=== PATIENT | male | born 1945 | race African-American/Black ===

== ENCOUNTER 2018-04-10 15:25 | Observation (INO) | payer MEDICARE, MEDICAID ==
[~2018-04-10 15:25] MED LIST: ISOVUE-370 76%-LOCM 1 ML ONE
--- NOTE | 2018-04-10 16:05 | RAD ---
AP VIEW OF THE CHEST 04/10/18 INDICATION: Syncopal episode. COMPARISON: Prior exam dated 11/08/16. FINDINGS: there is severe COPD. There is stable eventration of the anterior right hemidiaphragm when compared t o two view chest radiograph dated 02/24/11. The heart size and pulmonary vasculature is within normal limits. No acute osseous abnormality is janette dent. IMPRESSION: Stable COPD. POS: GRICEL
[2018-04-10 16:21] LABS: #Basophils 0.1 thou/uL (0.0-0.2); #Eosinphils 0.3 thou/uL (0.0-0.7); #Lymphocytes 3.2 thou/uL (1.20-3.40); #Monocytes 0.8 thou/uL (0.11-0.59); #Neutrophils 8.5 thou/uL (1.40-6.50); %Basophils 1.1 % (0.0-1.0); %Lymphocytes 24.8 % (21.0-51.0); %Monocytes 6.3 % (0.0-10.0); %Neutrophils 65.8 % (42.0-75.0); Hemoglobin 13.1 g/dL (14.0-18.0); Mean Corpuscular HGB CONC 33.1 g/dL (32.0-36.0); Mean Corpuscular Hemoglobin 31.6 pg (27.0-31.0); Mean Corpuscular Volume 95.4 fl (80.0-94.0); Mean Platelet Volume 6.3 fL (7.4-10.4); Platelet Count 401 thou/uL (130-400); RBC Distribution Width 12.1 % (11.5-14.5); Red Blood Cell (RBC) Count 4.15 mill/uL (4.70-6.10); White Blood Cell (WBC) Count 12.9 thou/uL (4.8-10.8)
[2018-04-10 16:28] LABS: INR-International Normal Ratio 1.1; PTT 30.3 SEC (22.9-36.1); Prothrombin Time 14.5 SEC (12.0-14.7)
[2018-04-10 16:29] LABS: D-Dimer Test 0.45 *mcg/mL (0.27-0.43)
[2018-04-10 16:42] LABS: ALT (SGPT) 37 U/L (8-55); AST (SGOT) 27 U/L (5-34); Albumin 3.6 g/dL (3.4-4.8); Alkaline Phosphatase 65 U/L (40-150); Anion Gap 10 mmol/L (10-20); BUN (Urea Nitrogen) 16 mg/dL (8.4-25.7); Bilirubin, Total 0.5 mg/dL (0.2-1.2); Calc. Creatinine Clearance 0 mL/min (70-130); Calcium 9.3 mg/dL (7.8-10.44); Carbon Dioxide 23 mmol/L (23-31); Chloride 106 mmol/L (98-107); Estimated GFR-MDRD 78; Globulin 3.8 g/dL (2.4-3.5); Glucose 198 mg/dL (83-110); Magnesium 1.9 mg/dL (1.6-2.6); Protein, Total 7.4 g/dL (5.8-8.1); Sodium 134 mmol/L (136-145)
[2018-04-10 16:48] LABS: Troponin I Less than 0.010 ng/mL (< 0.028)
--- NOTE | 2018-04-10 18:15 | PDOC.FPRHP ---
- History of Present Illness Chief Complaint: Syncope History of Present Illness: 72 year old male with PMH Type II DM, CKD stage III, HLD, HTN, and COPD that presents after a non-prodromal syncopal episode at home while walking into the kitchen. The event happened around 16:00 this afternoon and lasted only a few seconds. He had just gotten up from the couch when the episode occurred. He does not recall feeling dizzy or light-headed prior to the episode. He recalled the events upon waking up. He does state that all he ate today was a banana. The event was witnessed by a friend who called EMS at the request of the patient. Patient denies any similar events in the past. He was feeling fine prior to the event. He denies any chest pain, palpitations, light-headedness, vertigo, or difficulty ambulating. Patient does endorse a one month history of cough productive of clear sputum and shortness of breath that is mildly worse than baseline. He endorses some lower extremity swelling after standing for long periods of time. Patient denies any unintended weight loss or decrease in appetite. He states he has been staying well hydrated. Patient denies any new medication changes. ED Course: Patient received a 500 mL NS fluid bolus in ED. EKG was performed which showed NSR with no ischemic changes. - Allergies/Adverse Reactions Allergies Allergy/AdvReac Type Severity Reaction Status Date / Time No Known Allergies Allergy Verified 11/08/14 10:47 - Home Medications Medication Instructions Recorded Confirmed Type Amlodipine [Norvasc] 10 mg PO DAILY 02/27/14 04/10/18 History Lisinopril [Zestril] 20 mg PO DAILY 02/27/14 04/10/18 History Zantac 150 mg PO BID 02/27/14 04/10/18 History Aspirin-Dipyridamole [Aggrenox] 1 cap PO BID 02/28/14 04/10/18 History Albuterol Sulfate [Albuterol 2.5 mg NEB BID 04/10/18 04/10/18 History Sulfate Neb] Fluticasone/Salmeterol [Advair 1 puff INH BID 04/10/18 04/10/18 History Diskus 250/50] Ipratropium-Albuterol [Combivent] 2 puff INH Q4H PRN 04/10/18 04/10/18 History Metoprolol Tartrate [Lopressor] 25 mg PO BID 04/10/18 04/10/18 History Montelukast Sodium 10 mg PO DAILY 04/10/18 04/10/18 History glipiZIDE [Glucotrol] 10 mg PO BID 04/10/18 04/10/18 History metFORMIN HCl [Metformin HCl] 1,000 mg PO BID 04/10/18 04/10/18 History - History PMHx: Type II DM, CKD stage III, HLD, HTN, COPD, Neuropathy, GERD PSHx: None FHx: Non-contributory Social: Patient endorses a 1 pack per day 20 year smoking history. He quit smoking 30 years ago. He denies any current alcohol or illicit drug use. He does endorse using heroin in the 60's. - Review of Systems General: denies: fever/chills, weight/appetite/sleep changes, night sweats, fatigue Eyes: denies: eye pain, vision changes ENT: denies: nasal congestion, rhinorrhea Respiratory: reports: cough, congestion, shortness of breath, exercise intolerance Cardiovascular: reports: edema. denies: chest pain, palpitation, paroxysmal nocturnal dyspnea Gastrointestinal: denies: nausea, vomiting, diarrhea, constipation, abdominal pain Genitourinary: denies: incontinence, dysuria, polyuria Skin: denies: rashes, lesions, jaundice Musculoskeletal: denies: pain, tenderness, stiffness Neurological: reports: syncope. denies: numbness, seizure, weakness Psychological: denies: anxiety, depression - Vital signs BP: [137/82] HR: [83] RR: [21] Tmax: [97.9] Pox: [93]% on [RA] Wt: [77.56 kg] - Physical Exam Constitutional: NAD, awake, alert and oriented, well developed HEENT: normocephalic and atraumatic, PERRLA, EOMI, conjunctiva clear, no scleral icterus, normal nasal mucosa, MMM, oropharynx clear -HEENT: Poor dentition Neck: supple, FROM, trachea midline, no LAD, no JVD, no thyromegaly, no bruits Heart: RRR, normal S1/S2, no murmurs/rubs/gallops, pulses present -Heart: 1+ pitting edema of bilateral LE's to mid calf Lungs: CTAB, no respiratory distress, no wheezing, no retractions -Lungs: Decreased lung sounds throughout Abdomen: soft, non-tender, bowel sounds present Musculoskeletal: normal structure, normal tone, ROM grossly normal Neurological: no focal deficit, CN II-XII intact, normal sensation Skin: good turgor, capillary refill <2 seconds -Skin: Multiple tattoos Heme/Lymphatic: no unusual bruising or bleeding, no purpura -Heme/Lymphatic: Bruise over upper thoracic vertebrae Psychiatric: normal mood and affect, good judgment and insight, intact recent and remote memory FMR H&P: Results - Labs Result Diagrams: 04/11/18 04:00 04/11/18 04:00 Lab results: WBC 12.9 thou/uL (4.8-10.8) H 04/10/18 16:09 Hgb 13.1 g/dL (14.0-18.0) L 04/10/18 16:09 Hct 39.6 % (42.0-52.0) L 04/10/18 16:09 MCV 95.4 fl (80.0-94.0) H 04/10/18 16:09 Plt Count 401 thou/uL (130-400) H 04/10/18 16:09 Neutrophils % 65.8 % (42.0-75.0) 04/10/18 16:09 Sodium 134 mmol/L (136-145) L 04/10/18 16:09 Potassium 5.0 mmol/L (3.5-5.1) 04/10/18 16:09 Chloride 106 mmol/L (98-107) 04/10/18 16:09 Carbon Dioxide 23 mmol/L (23-31) 04/10/18 16:09 BUN 16 mg/dL (8.4-25.7) 04/10/18 16:09 Creatinine 1.12 mg/dL (0.6-1.3) 04/10/18 16:09 Glucose 198 mg/dL (83-110) H 04/10/18 16:09 Calcium 9.3 mg/dL (7.8-10.44) 04/10/18 16:09 Total Bilirubin 0.5 mg/dL (0.2-1.2) 04/10/18 16:09 AST 27 U/L (5-34) 04/10/18 16:09 ALT 37 U/L (8-55) 04/10/18 16:09 Alkaline Phosphatase 65 U/L (40-150) 04/10/18 16:09 B-Natriuretic Peptide 12.0 pg/mL (0-100) 04/10/18 16:09 Serum Total Protein 7.4 g/dL (5.8-8.1) 04/10/18 16:09 Albumin 3.6 g/dL (3.4-4.8) 04/10/18 16:09 - Radiology Interpretation Chest x-ray Status: image reviewed by me, report reviewed by me Additional comment: Stable COPD CT scan - chest Status: image reviewed by me, report reviewed by me Additional comment: 1. No central or segmental pulmonary embolism 2. Spiculated pulmonary nodule in right lower lobe suspicious for possible malignancy 3. Severe emphysema 4. Moderate hiatal hernia 5. Incompletely evaluated cystic lesion involving the superior pole of right kidney. 6. Suspected small hypodensity within the medial left hepatic lobe which may reflect a tiny cyst FMR H&P: A/P - Problem List (1) Syncope Current Visit: Yes Status: Acute Code(s): R55 - SYNCOPE AND COLLAPSE (2) Stage 3 chronic kidney disease Current Visit: Yes Status: Chronic Code(s): N18.3 - CHRONIC KIDNEY DISEASE, STAGE 3 (MODERATE) (3) Cerebrovascular disease Current Visit: No Status: Chronic Code(s): I67.9 - CEREBROVASCULAR DISEASE, UNSPECIFIED (4) Chronic obstructive pulmonary disease Current Visit: No Status: Chronic (5) Diabetes mellitus type 2 Current Visit: No Status: Acute Code(s): E11.9 - TYPE 2 DIABETES MELLITUS WITHOUT COMPLICATIONS (6) Gastroesophageal reflux disease Current Visit: No Status: Chronic Code(s): K21.9 - GASTRO-ESOPHAGEAL REFLUX DISEASE WITHOUT ESOPHAGITIS (7) Hyperlipidemia Current Visit: No Status: Chronic Code(s): E78.5 - HYPERLIPIDEMIA, UNSPECIFIED (8) Hypertension Current Visit: No Status: Chronic Code(s): I10 - ESSENTIAL (PRIMARY) HYPERTENSION (9) Lung mass Current Visit: Yes Status: Acute Code(s): R91.8 - OTHER NONSPECIFIC ABNORMAL FINDING OF LUNG FIELD - Plan Syncope likely 2/2 orthostatic hypotension - Syncopal event with no prodromal symptoms after getting up from seated position, no vertigo, no post-ictal state or evidence of seizure activity. Event was witnessed by friend who called EMS at request of patient. - Obtain orthostatic vital signs; of note pt has already received 500 mL bolus while down in ED - Monitor on telemetry for arrhythmias that may have contributed to syncopal event - BNP of 12; will opt not to do echo at this time unless pt goes into A-fib overnight - BG 183, although pt endorses not eating all day Lung mass evident on CTA of chest - Will need further workup as outpatient - Recommend pt follow with pulmonology on outpatient - Visible on CTA of chest but not on chest Xray Type II DM - Continue home medications - HgA1c recommended as outpatient HTN - Continue home medications - BP appears well controlled HLD - Consider adding statin medication unless contraindication - FLP as outpatient CKD stage III - Continue home medications - Monitor kidney function COPD - Does not appear to be in acute exacerbation - Will add duoneb treatments for symptom relief - Will hold on steroids for time being as this does not appear to be an acute exacerbation CVA - No residual deficits evident on physical exam - Continue aggrenox - Consider adding statin unless contraindications Dispo: Admit to telemetry for observation. Anticipate stay of <48 hours. FMR H&P: Upper Level - Pertinent history Agree with history as documented by Dr. Suarez. Patient's only preceeding symptoms were cough for the last month, occasionally productive, and having just stood up. Otherwise feeling well today and asymptomatic at present. - Pertinent findings CXR and CT results as above. Physical exam repeated by me and agree with above. A/P: 72 yo M with PMHx COPD, CVA, HTN, DM, HLD here with syncopal episode 1. Syncope: Isolated incident. DDX includes neurally-mediated, orthostatic, arrythmia, structural cardiac disease or hypoglycemia. No hx of prior episode makes neurally-mediated less likely and BG > 200 in EMS. Will monitor on telemetry overnight. Fall precautions. Consider ECHO. No medication changes recently. 2. COPD: Duonebs PRN. Home meds. O2 sat goal 88-92% 3. HTN: Home meds. Will check orthostatics once on floor. 4. DM: Home meds. Due for a1c outpatient (last in December was 8.6) 5. HLD: Needs repeat FLP outpatient to assess need for statin 6. H/o CVA: Continue aggrenox 7. Lung mass: Noted on CTA. Will need OP follow-up with pulmonology. PPX: Lovenox - Plan Date/Time: 04/10/181812 I, Brenda Chavez MD, have evaluated this patient and agree with findings/plan as outlined by video editing intern resident. Pertinent changes/additions are listed here. Attending Addendum - Attending Addendum Date/Time: 04/11/18 2945 I personally evaluated the patient and discussed the management with Dr. Suarez/Scott. I agree with the History, Examination, Assessment and Plan documented above with any addition or exceptions noted below.
--- NOTE | 2018-04-10 18:23 | CT ---
CTA OF THE THORAX UTILIZING IV CONTRAST AND 3D REFORMATTED IMAGING 04/10/18 INDICATION: Syncopal episode when getting up and going to the sink to wash dishes. COMPARISON: None. FINDINGS: No central or segmental pulmonary embolus is evident. There are coronary and thoracic aorta calcifica tions. There is a moderate sized hiatal hernia. There is a spiculated pulmonary nodule superior segme nt right lower lobe on image 70 of series 3. There is severe emphysema. No pleural effusion or pneumo thorax is evident. There is partial visualization of a hypodensity involving the superior pole right kidney that cannot be further characterized. There is small hypodensity within the medial left hepati c lobe that cannot be further characterized. There is no definite acute osseous abnormalities. IMPRESSION: 1. No central or segmental pulmonary embolus demonstrated. 2. Spiculated pulmonary nodule right lower lobe is suspicious for possible malignancy. Pulmonary consultation and further evaluation with PET CT may be helpful for additional evaluation. 3. Severe emphysema. 4. Moderate hiatal hernia. 5. Incompletely evaluated cystic lesion involving the superior pole of the right kidney. Followu p nonemergent renal ultrasound may be helpful for improved characterization. 6. Suspected small hypodensity within the medial left hepatic lobe may reflect a tiny cyst. Code T POS: GRICEL
[2018-04-10] MEDS ORDERED: Acetaminophen 325 MG TAB PO PRN (19:21)
[2018-04-10] MEDS ORDERED: Ondansetron ODT 4 MG TAB SL PRN (19:21)
[2018-04-10] MEDS ORDERED: Ondansetron HCl/PF 4 MG/2 ML Vial IVP PRN ×2 (19:21→19:40)
[2018-04-10] MEDS ORDERED: Ondansetron ODT 4 MG TAB PO PRN (19:40)
[2018-04-10] MEDS: Sodium Chloride 0.9% 1,000 ML IV SCH (20:28)
[2018-04-10] MEDS ORDERED: Enoxaparin Sodium 40 MG/0.4 ML SYRINGE SC SCH (22:30)
[2018-04-10 22:49] VITALS: BMI 23.1
[2018-04-11 05:00] LABS: #Basophils 0.1 thou/uL (0.0-0.2); #Eosinphils 0.3 thou/uL (0.0-0.7); #Lymphocytes 3.5 thou/uL (1.20-3.40); #Monocytes 0.9 thou/uL (0.11-0.59); #Neutrophils 6.2 thou/uL (1.40-6.50); %Basophils 1.1 % (0.0-1.0); %Eosinophils 2.8 % (0.0-10.0); %Lymphocytes 31.6 % (21.0-51.0); %Monocytes 8.2 % (0.0-10.0); %Neutrophils 56.3 % (42.0-75.0); Hemoglobin 11.5 g/dL (14.0-18.0); Mean Corpuscular HGB CONC 32.4 g/dL (32.0-36.0); Mean Corpuscular Volume 95.8 fl (80.0-94.0); Mean Platelet Volume 6.5 fL (7.4-10.4); Platelet Count 386 thou/uL (130-400); RBC Distribution Width 11.8 % (11.5-14.5); Red Blood Cell (RBC) Count 3.72 mill/uL (4.70-6.10)
[2018-04-11 05:13] LABS: Anion Gap 8 mmol/L (10-20); BUN (Urea Nitrogen) 12 mg/dL (8.4-25.7); Calc. Creatinine Clearance 67 mL/min (70-130); Calcium 8.9 mg/dL (7.8-10.44); Carbon Dioxide 25 mmol/L (23-31); Chloride 108 mmol/L (98-107); Estimated GFR-MDRD 83; Glucose 182 mg/dL (83-110); Potassium 4.3 mmol/L (3.5-5.1); Sodium 137 mmol/L (136-145)
--- NOTE | 2018-04-11 07:44 | PDOC.FM ---
- Subjective Subjective: Patient states he feels well. He states that his episode yesterday may have been due to his COPD. He states he has not had any similar feelings and has not felt weak on his feet, but he hasn't been up much today. He still complains of his chronic cough. No other complaints. - Objective Vital Signs & Weight: Vital Signs (12 hours) Temp Pulse Resp BP BP BP BP 04/11/18 06:56 83 16 04/11/18 04:00 98.0 F 67 16 125/68 04/10/18 23:12 04/10/18 20:00 97.8 F 87 18 164/91 H 176/100 H 167/89 H Pulse Ox 04/11/18 06:56 98 04/11/18 04:00 04/10/18 23:12 98 04/10/18 20:00 93 L Weight Weight 75.296 kg I&O: 04/10/18 04/11/18 04/12/18 06:59 06:59 06:59 Intake Total 425 Output Total 525 Balance -100 Result Diagrams: 04/11/18 04:00 04/11/18 04:00 <Kuldeep Yatse - Last Filed: 04/11/18 07:42> - Objective Vital Signs & Weight: Vital Signs (12 hours) Temp Pulse Resp BP Pulse Ox 04/11/18 09:49 78 18 92 L 04/11/18 08:00 97.8 F 78 18 143/75 H 92 L 04/11/18 06:56 83 16 98 04/11/18 04:00 98.0 F 67 16 125/68 04/10/18 23:12 98 Weight Weight 75.296 kg I&O: 04/10/18 04/11/18 04/12/18 06:59 06:59 06:59 Intake Total 425 240 Output Total 525 Balance -100 240 Result Diagrams: 04/11/18 04:00 04/11/18 04:00 <Brandon Hdez - Last Filed: 04/11/18 10:51> Phys Exam - Physical Examination HEENT: moist MMs Neck: no nodes Respiratory: no wheezing, clear to auscultation bilateral Cardiovascular: RRR, no significant murmur Gastrointestinal: soft, non-tender, no distention, positive bowel sounds Musculoskeletal: pulses present trace edema bilaterally Neurological: non-focal, normal sensation, moves all 4 limbs Lymphatic: no nodes Psychiatric: normal affect, A&O x 3 Skin: no rash <Kuldeep Yates - Last Filed: 04/11/18 07:42> Dx/Plan (1) Syncope Code(s): R55 - SYNCOPE AND COLLAPSE Status: Acute (2) Diabetes mellitus type 2 Code(s): E11.9 - TYPE 2 DIABETES MELLITUS WITHOUT COMPLICATIONS Status: Acute (3) Chronic obstructive pulmonary disease Status: Chronic (4) Hyperlipidemia Code(s): E78.5 - HYPERLIPIDEMIA, UNSPECIFIED Status: Chronic (5) Hypertension Code(s): I10 - ESSENTIAL (PRIMARY) HYPERTENSION Status: Chronic (6) Lung mass Code(s): R91.8 - OTHER NONSPECIFIC ABNORMAL FINDING OF LUNG FIELD Status: Acute (7) Cerebrovascular disease Code(s): I67.9 - CEREBROVASCULAR DISEASE, UNSPECIFIED Status: Chronic (8) Stage 2 chronic kidney disease Code(s): N18.2 - CHRONIC KIDNEY DISEASE, STAGE 2 (MILD) Status: Acute - Plan Plan: Syncope likely 2/2 orthostatic hypotension - Syncopal event with no prodromal symptoms after getting up from seated position, no vertigo, no post-ictal state or evidence of seizure activity. Event was witnessed by friend who called EMS at request of patient. - Negative orthostatics - Monitor on telemetry for arrhythmias that may have contributed to syncopal event - BG 100-200s Lung mass evident on CTA of chest - Will need further workup as outpatient - Recommend pt follow with pulmonology on outpatient - Visible on CTA of chest but not on chest Xray Type II DM - Continue home medications - HgA1c recommended as outpatient HTN - Continue home medications - BP appears well controlled HLD - Add atorvastatin - FLP as outpatient CKD stage II - Continue home medications - At baseline - Monitor kidney function COPD - Does not appear to be in acute exacerbation - Will add duoneb treatments for symptom relief CVA - No residual deficits evident on physical exam - Continue aggrenox - Add atorvastatin Disposition: Stable, patient can likely be ready for discharge today. <Kuldeep Yates - Last Filed: 04/11/18 07:42> (1) Syncope Code(s): R55 - SYNCOPE AND COLLAPSE Status: Acute (2) Stage 3 chronic kidney disease Code(s): N18.3 - CHRONIC KIDNEY DISEASE, STAGE 3 (MODERATE) Status: Chronic (3) Cerebrovascular disease Code(s): I67.9 - CEREBROVASCULAR DISEASE, UNSPECIFIED Status: Chronic (4) Chronic obstructive pulmonary disease Status: Chronic (5) Diabetes mellitus type 2 Code(s): E11.9 - TYPE 2 DIABETES MELLITUS WITHOUT COMPLICATIONS Status: Acute (6) Gastroesophageal reflux disease Code(s): K21.9 - GASTRO-ESOPHAGEAL REFLUX DISEASE WITHOUT ESOPHAGITIS Status: Chronic (7) Hyperlipidemia Code(s): E78.5 - HYPERLIPIDEMIA, UNSPECIFIED Status: Chronic (8) Hypertension Code(s): I10 - ESSENTIAL (PRIMARY) HYPERTENSION Status: Chronic (9) Lung mass Code(s): R91.8 - OTHER NONSPECIFIC ABNORMAL FINDING OF LUNG FIELD Status: Acute <Brandon Hdez - Last Filed: 04/11/18 10:51> Attending Addendum - Attending Addendum Date/Time: 04/11/18 1048 I personally evaluated the patient and discussed the management with Dr. Yates. I agree with the History, Examination, Assessment and Plan documented above with any addition or exceptions noted below. Patient doing well this morning and is ready to go home. He was admitted to observation status overnight due to possible syncopal episode upon changes in position. He has been fluid hydrated and feels improved. His telemetry shows no aberrancy. He has close follow up in outpatient setting with PCP in 2 days and Cardiology in 1 week. He can be discharged home today. Labs stable. He does have CT evidence of a spiculated lung mass that will need further workup and will communicate that with PCP. <Brandon Hdez - Last Filed: 04/11/18 10:51>
[2018-04-11] MEDS: Sodium Chloride 0.9% 1,000 ML IV SCH (10:00)
[2018-04-11 12:37] VITALS: BP 136/72; TEMP 98.2
[2018-04-11] MEDS ORDERED: Enoxaparin Sodium 40 MG/0.4 ML SYRINGE SC SCH (21:00)
--- NOTE | 2018-04-12 01:21 | DIS-2 ---
DATE OF ADMISSION: 04/10/2018 DATE OF DISCHARGE: 04/11/2018 RESIDENT: Dr. Yates ADMITTING ATTENDING: Dr. Hdez. DISCHARGE ATTENDING: Dr. Hdez. CONSULTATIONS: None. PROCEDURES: The patient underwent a chest x-ray on 04/10/2018 that showed stable COPD. The patient underwent a chest thorax CTA on 04/10/2018 that showed no central or segmental pulmonary embolus demonstrated. Spiculated pulmonary nodule right lower lobe is suspicious for possible malignancy. Pulmonary consultation and further evaluation with PET CT may be helpful for additional evaluation. Severe emphysema. Moderate hiatal hernia. Incompletely evaluated cystic lesion involving the superior pole of the right kidney. Follow up nonemergent renal ultrasound may be helpful for improved characterization. Suspected small hypodensity within the medial left hepatic lobe may reflect a tiny cyst. PRIMARY DISCHARGE DIAGNOSES: 1. Syncope. 2. Diabetes mellitus type 2. 3. COPD. 4. Hyperlipidemia. 5. Hypertension. 6. New lung mass. 7. History of cerebrovascular accident. 8. Stage 2 chronic kidney disease. DISCHARGE MEDICATIONS: 1. Amlodipine 10 mg p.o. daily. 2. Lisinopril 20 mg p.o. daily. 3. Zantac 150 mg p.o. b.i.d. 4. Aggrenox 25 mg/200 mg 1 cap p.o. b.i.d. 5. Albuterol 2.5 mg nebulized b.i.d. 6. Advair Diskus 250/50 one puff inhaled b.i.d. 7. Glipizide 10 mg p.o. b.i.d. 8. Montelukast 10 mg p.o. daily. 9. Metoprolol tartrate 25 mg p.o. b.i.d. 10. Metformin 1000 mg p.o. b.i.d. 11. Combivent 2 puffs inhaled q.4 hours p.r.n. 12. Tessalon 100 mg p.o. t.i.d. 13. Azithromycin 500 mg p.o. daily for 3 days. DISCONTINUED MEDICATIONS: None. HISTORY OF PRESENT ILLNESS AND HOSPITAL COURSE: This is a 72-year-old male with past medical history of type 2 diabetes, CKD stage 2, hyperlipidemia, hypertension, COPD who presents after prodromal syncope episode at home while walking into the kitchen. The event happened around 1600 this afternoon lasted only a few seconds. He had got up from the couch and when the episode occurred. He does not recall feeling dizzy or lightheaded prior to the episode. He recalled the events upon waking up. He does state that all he ate today was a banana. The event was witnessed by a friend who called EMS at the request of the patient. The patient denies any similar events in the past. He was feeling fine prior to the event. He denies any chest pain, palpitations, lightheadedness, vertigo or difficulty ambulating. The patient does endorse a 1 -month history of cough productive of clear sputum and shortness of breath that was mildly worse than baseline. He endorses some lower extremity swelling after standing for long periods of time. The patient denies any unintended weight loss or decreased appetite. He states he is staying well hydrated. The patient denies any new medication courses. In the emergency department, he was given a 500 mL normal saline bolus and EKG showed normal sinus rhythm with no ischemic changes. During this hospitalization, the patient had a normal lab value of a white blood cell count 12.9, but trended down to 11.0 on day of discharge. Hemoglobin and hematocrit were stable. He did have a D-dimer of 0.45. His glucose ranged from 163-218. His TSH was within normal limits and his CKD was stable with a GFR in the range of 78-83. The patient had a long conversation with the admitting team and there was some concern for the cause of the hospitalization. The patient was very conscious and did not want to have a bunch of extraneous studies done that would cause a lot of excess cost to him. The patient has been working closely with Dr. Pepito larkin at [facility] to ensure that he is getting adequate followup for his chronic conditions. The patient had normotensive vital signs and afebrile as well as oxygen saturations remained above 90% on room air. The patient was counseled extensively on the need for him to follow up with his PCP to continue to discuss this syncope episode as well as the newly found lung mass and the possibility of it being a cancerous mass. The patient also stated that he has a follow up with Cardiology in 2 weeks for some arrhythmias that he has had in the past. It is recommended by our admitting team that the patient undergo further testing with likely a Holter monitor as an outpatient to determine if there is any underlying arrhythmia issues that could have been the cause of his syncope. The patient is also recommended to follow up with his PCP to get coordinated with a Pulmonology consultation to figure out if the newly found lung mass is cancerous or not. Otherwise, the patient had no further complications of this hospitalization and was ready for discharge, wanted to be discharged and was discharged on appropriate condition. DISPOSITION: Stable. DISCHARGE INSTRUCTIONS: 1. Location will be discharged home into the care of himself. 2. Diet will be a diabetic and heart healthy diet. 3. Activity will be as tolerated with no restrictions and follow up will be with Dr. Beyer in 3 days to further coordinate his care for his chronic diseases as well as Dr. Jensen his special machine stitcher in 7 days to further discuss monitoring of his heart. PEDRO
== END 2018-04-11 15:02 | disposition home or self-care (01) ==
LOC: ERS 15:25 → INTOOBSV 19:17 → 2NO 19:17
PROVIDERS: ADMIT Student in an Organized Health Care Education/Training Program; ATTEND Student in an Organized Health Care Education/Training Program
DX: R55 Syncope and collapse (principal); E11.22 Type 2 diabetes mellitus with diabetic chronic kidney disease; N18.3 Chronic kidney disease, stage 3 (moderate); I10 Essential (primary) hypertension; J44.9 Chronic obstructive pulmonary disease, unspecified; Z79.82 Long term (current) use of aspirin; Z79.899 Other long term (current) drug therapy; Z79.51 Long term (current) use of inhaled steroids; Z79.84 Long term (current) use of oral hypoglycemic drugs; Z87.891 Personal history of nicotine dependence
CPT/HCPCS: 71045; 71275; 80048; 82962 ×2; 83735; 83880; 84484; 85025; 85379; 85610; 85730; 93005; 94640 ×2; 96360; 96361 ×3; 96372; 99285; G0378; 36415; 36416; 80053; 84443; J1650; J7620

== ENCOUNTER 2019-03-17 09:47 | Inpatient (IN) | payer MEDICARE, MEDICAID ==
[2019-03-17] MEDS ORDERED: Adacel (T-DAP) 0.5 ML SYRINGE ONE (10:18)
[2019-03-17 10:26] LABS: #Basophils 0.1 thou/uL (0.0-0.2); #Eosinphils 0.5 thou/uL (0.0-0.7); #Monocytes 1.1 thou/uL (0.11-0.59); #Neutrophils 6.6 thou/uL (1.40-6.50); %Basophils 1.2 % (0.0-1.0); %Eosinophils 3.8 % (0.0-10.0); %Lymphocytes 32.6 % (21.0-51.0); %Monocytes 8.7 % (0.0-10.0); %Neutrophils 53.7 % (42.0-75.0); Hemoglobin 12.4 g/dL (14.0-18.0); Mean Corpuscular HGB CONC 31.6 g/dL (32.0-36.0); Mean Corpuscular Hemoglobin 30.5 pg (27.0-31.0); Mean Corpuscular Volume 96.4 fL (78.0-98.0); Mean Platelet Volume 6.8 fL (7.4-10.4); Platelet Count 395 thou/uL (130-400); RBC Distribution Width 12.2 % (11.5-14.5); Red Blood Cell (RBC) Count 4.07 mill/uL (4.70-6.10); White Blood Cell (WBC) Count 12.3 thou/uL (4.8-10.8)
[2019-03-17] MEDS ORDERED: Ondansetron PF 4 MG/2 ML Vial ONE (10:29)
[2019-03-17] MEDS ORDERED: Fentanyl 100 MCG/2 ML VIAL ONE (10:30)
[2019-03-17] MEDS ORDERED: ISOVUE-370 76%-LOCM 1 ML ONE (10:34)
[2019-03-17 10:37] LABS: PTT 26.8 SEC (22.9-36.1); Prothrombin Time 13.3 SEC (12.0-14.7)
[2019-03-17 10:39] LABS: Acetaminophen Less than 6.0 mcg/mL (10.0-30.0); Alcohol Less than 10 mg/dL (Less than 10); Salicylate Less than 8.0 mg/dL (15.0-30.0)
[2019-03-17 10:40] LABS: ALT (SGPT) 45 U/L (8-55); AST (SGOT) 45 U/L (5-34); Albumin 3.7 g/dL (3.4-4.8); Alkaline Phosphatase 76 U/L (40-150); Anion Gap 13 mmol/L (10-20); BUN (Urea Nitrogen) 10 mg/dL (8.4-25.7); Bilirubin, Total 0.4 mg/dL (0.2-1.2); CK (CPK) 112 U/L (30-200); Calc. Creatinine Clearance 0 mL/min (70-130); Calcium 9.2 mg/dL (7.8-10.44); Carbon Dioxide 24 mmol/L (23-31); Chloride 105 mmol/L (98-107); Estimated GFR-MDRD 82; Globulin 3.2 g/dL (2.4-3.5); Glucose 206 mg/dL (83-110); Potassium 4.8 mmol/L (3.5-5.1); Protein, Total 6.9 g/dL (5.8-8.1); Sodium 137 mmol/L (136-145)
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
--- NOTE | 2019-03-17 10:58 | RAD ---
2 VIEWS RIGHT TIBIA AND FIBULA: Date: 03/17/19 COMPARISON: None. HISTORY: Right leg pain. FINDINGS: Two views of the right tibia/fibula shows a comminuted fracture of the proximal tibia. This fracture extends to the tibial spine and to the medial tibial plateau. No dislocation is seen. No fibula fract ure is present. IMPRESSION: Comminuted proximal tibia fracture. POS: [facility]
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
[2019-03-17 12:02] LABS: Amphetamine Not Detected (NotDetected); Barbiturates Screen Not Detected (NotDetected); Benzodiazepine Screen Not Detected (NotDetected); Cocaine Metabolite Screen Not Detected (NotDetected); Medtox Control Line Valid? VALID (VALID); Medtox Reader # READER 1; Methadone Not Detected (NotDetected); Methamphetamine Not Detected (NotDetected); Opiate Screen Not Detected (NotDetected); Oxycodone Screen Not Detected (NotDetected); Phencyclidine (PCP) Not Detected (NotDetected); THC/Cannabinoid Screen Not Detected (NotDetected); Tricyclic Screen Not Detected (NotDetected)
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
[2019-03-17] MEDS ORDERED: Dextrose 5% in Water 1,000 ML IV PRN (12:55)
[2019-03-17] MEDS ORDERED: Ondansetron ODT 4 MG TAB PO PRN (12:55)
[2019-03-17] MEDS ORDERED: Ondansetron PF 4 MG/2 ML Vial IVP PRN (12:55)
[2019-03-17] MEDS ORDERED: hydrALAZINE 20 MG/ML VIAL SLOW IVP PRN (12:55)
[2019-03-17] MEDS ORDERED: Rib Fracture Protocol IV SCH (12:55)
[2019-03-17] MEDS ORDERED: Dextrose 50% Abboject 50 ML SYRINGE SLOW IVP PRN (12:55)
[2019-03-17] MEDS ORDERED: Cyclobenzaprine 10 MG TAB PO PRN (13:16)
[2019-03-17] MEDS ORDERED: Morphine 2 MG/ML SYRINGE SLOW IVP PRN (13:35)
[2019-03-17] MEDS: Morphine 4 MG/ML VIAL SLOW IVP PRN ×2 (13:46→20:05)
[2019-03-17] MEDS: Sodium Chloride 0.9% 1,000 ML IV SCH ×3 (13:47→23:04)
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
[2019-03-17 15:26] LABS: Lactic Acid 1.5 mmol/L (0.5-2.2)
[2019-03-17] MEDS: Acetaminophen 325 MG TAB PO SCH ×2 (17:20→23:03)
[2019-03-17] MEDS: Ketorolac Tromethamine 30 MG/ML VIAL IVP SCH ×2 (17:20→23:03)
[2019-03-17] MEDS ORDERED: Acetaminophen 650 MG Suppository PR SCH (18:00)
[2019-03-17] MEDS: Famotidine 20 MG TAB PO SCH (20:02)
[2019-03-18] MEDS: Morphine 4 MG/ML VIAL SLOW IVP PRN ×2 (03:57→11:11)
[2019-03-18 05:00] LABS: #Basophils 0.1 thou/uL (0.0-0.2); #Eosinphils 0.1 thou/uL (0.0-0.7); #Lymphocytes 3.1 thou/uL (1.20-3.40); #Monocytes 1.9 thou/uL (0.11-0.59); #Neutrophils 10.2 thou/uL (1.40-6.50); %Basophils 0.5 % (0.0-1.0); %Eosinophils 0.8 % (0.0-10.0); %Lymphocytes 20.3 % (21.0-51.0); %Monocytes 12.3 % (0.0-10.0); %Neutrophils 66.1 % (42.0-75.0); Hemoglobin 9.8 g/dL (14.0-18.0); Mean Corpuscular HGB CONC 32.2 g/dL (32.0-36.0); Mean Corpuscular Hemoglobin 31.3 pg (27.0-31.0); Mean Corpuscular Volume 97.2 fL (78.0-98.0); Mean Platelet Volume 6.4 fL (7.4-10.4); Platelet Count 311 thou/uL (130-400); RBC Distribution Width 12.1 % (11.5-14.5); Red Blood Cell (RBC) Count 3.15 mill/uL (4.70-6.10); White Blood Cell (WBC) Count 15.4 thou/uL (4.8-10.8)
[2019-03-18 05:07] LABS: Anion Gap 11 mmol/L (10-20); BUN (Urea Nitrogen) 19 mg/dL (8.4-25.7); Calc. Creatinine Clearance 52 mL/min (70-130); Calcium 8.5 mg/dL (7.8-10.44); Carbon Dioxide 25 mmol/L (23-31); Chloride 107 mmol/L (98-107); Estimated GFR-MDRD 66; Glucose 175 mg/dL (83-110); Magnesium 1.9 mg/dL (1.6-2.6); Potassium 5.4 mmol/L (3.5-5.1); Sodium 138 mmol/L (136-145)
[2019-03-18] MEDS: Acetaminophen 325 MG TAB PO SCH (05:26)
[2019-03-18] MEDS: Ketorolac Tromethamine 30 MG/ML VIAL IVP SCH (05:26)
[2019-03-18] MEDS: Famotidine 20 MG TAB PO SCH ×2 (08:20→20:15)
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
[2019-03-18] MEDS ORDERED: CEFAZOLIN 2 GM in Premix Bag 1 BAG IVPB SCH (12:15)
[2019-03-18] MEDS: Ibuprofen 600 MG TAB PO SCH ×3 (12:23→23:35)
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
[2019-03-18] MEDS ORDERED: Acetaminophen 1,000 MG in Premix Bag 1 BAG IVPB SCH (18:30)
[2019-03-18] MEDS: Mometasone/Formoterol 120 PUFF INHALER INH SCH (19:12)
[2019-03-18] MEDS: Metoprolol Tartrate 25 MG TAB PO SCH (20:15)
[2019-03-18] MEDS: Gabapentin 300 MG CAP PO SCH (20:15)
[2019-03-18] MEDS ORDERED: Sodium Chloride 0.9% 1,000 ML IV SCH (23:55)
[2019-03-19 05:18] LABS: #Basophils 0.1 thou/uL (0.0-0.2); #Eosinphils 0.2 thou/uL (0.0-0.7); #Lymphocytes 2.2 thou/uL (1.20-3.40); #Monocytes 1.5 thou/uL (0.11-0.59); #Neutrophils 15.3 thou/uL (1.40-6.50); %Basophils 0.4 % (0.0-1.0); %Eosinophils 1.2 % (0.0-10.0); %Lymphocytes 11.4 % (21.0-51.0); %Neutrophils 79.1 % (42.0-75.0); Hemoglobin 8.7 g/dL (14.0-18.0); Mean Corpuscular HGB CONC 31.9 g/dL (32.0-36.0); Mean Corpuscular Hemoglobin 30.5 pg (27.0-31.0); Mean Corpuscular Volume 95.6 fL (78.0-98.0); Mean Platelet Volume 7.3 fL (7.4-10.4); Platelet Count 259 thou/uL (130-400); Red Blood Cell (RBC) Count 2.86 mill/uL (4.70-6.10); White Blood Cell (WBC) Count 19.4 thou/uL (4.8-10.8)
[2019-03-19] MEDS: Ibuprofen 600 MG TAB PO SCH ×2 (05:31→13:06)
[2019-03-19 05:32] LABS: Anion Gap 12 mmol/L (10-20); BUN (Urea Nitrogen) 22 mg/dL (8.4-25.7); Calc. Creatinine Clearance 54 mL/min (70-130); Carbon Dioxide 24 mmol/L (23-31); Chloride 106 mmol/L (98-107); Estimated GFR-MDRD 68; Glucose 181 mg/dL (83-110); Magnesium 1.9 mg/dL (1.6-2.6); Potassium 4.9 mmol/L (3.5-5.1); Sodium 137 mmol/L (136-145)
[2019-03-19] MEDS: Mometasone/Formoterol 120 PUFF INHALER INH SCH ×2 (07:19→18:26)
[2019-03-19] MEDS: Metoprolol Tartrate 25 MG TAB PO SCH (07:27)
[2019-03-19] MEDS ORDERED: Morphine 4 MG/ML VIAL ONE (07:41)
[2019-03-19] MEDS ORDERED: Fentanyl 100 MCG/2 ML VIAL ONE ×2 (08:21→11:55)
[2019-03-19] MEDS ORDERED: Famotidine/PF 20 mg/2ml Vial ONE (08:21)
[2019-03-19] MEDS ORDERED: Azithromycin 250 MG TAB PO SCH (09:00)
[2019-03-19] MEDS: Gabapentin 300 MG CAP PO SCH (09:00)
[2019-03-19] MEDS: Amlodipine 10 MG TAB PO SCH (09:00)
[2019-03-19] MEDS: Lisinopril 20 MG TAB PO SCH (09:00)
[2019-03-19] MEDS: Montelukast Sodium 10 mg Tablet PO SCH (09:00)
[2019-03-19] MEDS: Famotidine 20 MG TAB PO SCH (09:00)
[2019-03-19] MEDS ORDERED: PHENYLEPHRINE-NS 100 MCG/ML 10 ML SYRINGE ONE (09:08)
[2019-03-19] MEDS ORDERED: ePHEDrine/0.9% NaCl/PF SYRINGE 50 mg/10 ml ONE (09:08)
[2019-03-19] MEDS ORDERED: Albumin 5% 500 ML ONE (10:10)
[2019-03-19] MEDS ORDERED: Albuterol Sulfate HFA (OR ONLY) ONE (10:10)
[2019-03-19] MEDS: Morphine 4 MG/ML VIAL SLOW IVP PRN (12:44)
[2019-03-19 13:03] LABS: Base Excess (BEa) -8.2 mEq/L (-2.0 to +3.0); Calcium, Ionized 1.15 mmol/L (1.12-1.30); Carboxyhemoglobin (COHb) 1.4 gm% (0.0-3.0); Hemoglobin (Hb) 9.7 g/dL (14.0-18.0); O2 Tension (PaO2) 91.4 mmHg (> 70.0); Potassium - ABG Lab 5.35 mmol/L (3.70-5.30)
[2019-03-19 13:04] LABS: CO2 Tension 63.8 mmHg (35.0-45.0); pH, Arterial 7.14 (7.35-7.45)
[2019-03-19 13:05] LABS: Puncture Site ALINE
[2019-03-19] MEDS: Insulin Regular 300 UNITS/3 ML VIAL SC PRN ×2 (13:12→18:35)
[2019-03-19] MEDS ORDERED: Ventilator Sedation Protocol 1 EACH FS SCH (13:15)
[2019-03-19] MEDS ORDERED: PROPOFOL 200 MG/20 ML VIAL ONE (13:17)
[2019-03-19] MEDS ORDERED: Metoclopramide HCl 10 MG/2 ML VIAL ONE (13:17)
[2019-03-19] MEDS ORDERED: PROPOFOL 0 ML ONE (13:17)
[2019-03-19] MEDS ORDERED: Lidocaine 1% PF 5 ML VIAL ONE (13:17)
[2019-03-19] MEDS ORDERED: Ondansetron PF 4 MG/2 ML Vial ONE (13:17)
[2019-03-19] MEDS ORDERED: Rocuronium Bromide 10 MG/ML (10ML VIAL) ONE (13:17)
[2019-03-19] MEDS ORDERED: ePHEDrine 50 MG/ML VIAL ONE (13:17)
[2019-03-19] MEDS ORDERED: Glycopyrrolate 0.2 MG/ML 5 ML SYRINGE ONE (13:17)
[2019-03-19] MEDS ORDERED: PROVENTIL INHALER 6.7 G (200 INHALATIONS) ONE (13:17)
[2019-03-19] MEDS ORDERED: Propofol 1,000 MG/100 ML VIAL IV ONE (13:18)
[2019-03-19] MEDS ORDERED: Fentanyl BOLUS 250 ML IVPB PRN (13:19)
[2019-03-19] MEDS ORDERED: fentaNYL Citrate/PF 2,000 MCG in Sodium Chloride 0.9% 60 ML IV SCH (13:19)
[2019-03-19] MEDS ORDERED: DISCONTINUE PREVIOUS NARCOTIC PAIN MEDICATIONS AND BENZODIAZEPINES FS SCH (13:19)
[2019-03-19] MEDS ORDERED: Morphine 2 MG/ML SYRINGE SLOW IVP PRN (13:19)
[2019-03-19] MEDS ORDERED: Propofol BOLUS 1,000 MG/100 ML VIAL IV PRN (13:19)
[2019-03-19] MEDS ORDERED: Propofol 1,000 MG/100 ML VIAL IV PRN (13:19)
[2019-03-19] MEDS ORDERED: Lorazepam 2 MG/ML VIAL SLOW IVP PRN (13:19)
[2019-03-19 13:23] LABS: Actual Bicarbonate (HCO3a) 19.9 mEq/L (22-28); Base Excess (BEa) -8.3 mEq/L (-2.0 to +3.0); CO2 Tension 54.2 mmHg (35.0-45.0); Calcium, Ionized 1.14 mmol/L (1.12-1.30); Carboxyhemoglobin (COHb) 1.1 gm% (0.0-3.0); Hemoglobin (Hb) 9.6 g/dL (14.0-18.0); O2 Tension (PaO2) 82.6 mmHg (> 70.0); Potassium - ABG Lab 5.07 mmol/L (3.70-5.30); pH, Arterial 7.18 (7.35-7.45)
[2019-03-19] MEDS ORDERED: Sodium Bicarb 50 MEQ/50 ML VIAL IVP SCH (13:30)
[2019-03-19] MEDS ORDERED: Bacteriostatic Water 30 ML VIAL FS PRN (13:49)
[2019-03-19] MEDS ORDERED: Sodium Bicarb 50 MEQ/50 ML VIAL ONE (13:53)
[2019-03-19] MEDS ORDERED: methylPREDNISolone Sod Succ/PF 125 MG/2 ML VIAL IVP SCH (14:00)
[2019-03-19] MEDS: CEFAZOLIN 2 GM in Premix Bag 1 BAG IVPB SCH ×2 (14:07→21:03)
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
[2019-03-19 18:32] LABS: Hemoglobin 8.7 g/dL (14.0-18.0)
[2019-03-19] MEDS: Lactated Ringer's 1,000 ML IV SCH (18:44)
--- NOTE | 2019-03-19 22:32 | RAD ---
INTRAOPERATIVE RADIOGRAPH RIGHT FEMUR: 03/19/19 HISTORY: Open reduction and internal fixation. Five intraoperative radiographs obtained of the right femur. There has been placement of a intertrochanteric nail across the intertrochanteric fracture. Proximal and distal fracture fragments are in good anatomic alignment post open reduction internal fixation. IMPRESSION: Proximal right femoral intertrochanteric fracture surgical radiographs. POS: [facility]
--- NOTE | 2019-03-19 22:34 | RAD ---
AP AND LATERAL VIEWS PROXIMAL RIGHT TIBIA 03/19/19 HISTORY: Open reduction internal fixation. Three intraoperative radiographs demonstrate open reduction and internal fixation of a proximal right tibial fracture. Plate and screws are in good position. IMPRESSION: Open reduction internal fixation proximal right tibial fracture. POS: [facility]
[2019-03-20] MEDS: Metoprolol Tartrate 25 MG TAB PO SCH ×3 (00:40→20:42)
[2019-03-20] MEDS: Insulin Regular 300 UNITS/3 ML VIAL SC PRN ×5 (00:42→22:15)
[2019-03-20] MEDS: CEFAZOLIN 2 GM in Premix Bag 1 BAG IVPB SCH (06:30)
[2019-03-20] MEDS: Lactated Ringer's 1,000 ML IV SCH (06:33)
[2019-03-20 07:28] LABS: Actual Bicarbonate (HCO3a) 21.5 mEq/L (22-28); Base Excess (BEa) -4.2 mEq/L (-2.0 to +3.0); CO2 Tension 41.7 mmHg (35.0-45.0); Calcium, Ionized 1.14 mmol/L (1.12-1.30); Carboxyhemoglobin (COHb) 0.8 gm% (0.0-3.0); Hemoglobin (Hb) 9.3 g/dL (14.0-18.0); O2 Tension (PaO2) 71.4 mmHg (> 70.0); Potassium - ABG Lab 4.46 mmol/L (3.70-5.30); pH, Arterial 7.33 (7.35-7.45)
[2019-03-20 07:29] LABS: Puncture Site A-LINE
[2019-03-20 07:30] LABS: ALV-art Gradient 161.675 (0-20)
[2019-03-20] MEDS: Mometasone/Formoterol 120 PUFF INHALER INH SCH ×2 (08:12→22:05)
[2019-03-20] MEDS: methylPREDNISolone Sod Succ/PF 125 MG/2 ML VIAL IVP SCH ×2 (08:43→08:46)
[2019-03-20 09:13] LABS: #Lymphocytes 1.5 thou/uL (1.20-3.40); #Monocytes 1.8 thou/uL (0.11-0.59); #Neutrophils 11.5 thou/uL (1.40-6.50); %Basophils 0.2 % (0.0-1.0); %Eosinophils 0.3 % (0.0-10.0); %Lymphocytes 10.3 % (21.0-51.0); %Monocytes 11.8 % (0.0-10.0); %Neutrophils 77.4 % (42.0-75.0); Hemoglobin 8.7 g/dL (14.0-18.0); Mean Corpuscular HGB CONC 32.5 g/dL (32.0-36.0); Mean Corpuscular Hemoglobin 31.4 pg (27.0-31.0); Mean Corpuscular Volume 96.9 fL (78.0-98.0); Mean Platelet Volume 7.7 fL (7.4-10.4); Platelet Count 198 thou/uL (130-400); RBC Distribution Width 12.2 % (11.5-14.5); Red Blood Cell (RBC) Count 2.78 mill/uL (4.70-6.10); White Blood Cell (WBC) Count 14.9 thou/uL (4.8-10.8)
[2019-03-20 09:27] LABS: Anion Gap 11 mmol/L (10-20); BUN (Urea Nitrogen) 28 mg/dL (8.4-25.7); Calc. Creatinine Clearance 47 mL/min (70-130); Calcium 8.7 mg/dL (7.8-10.44); Carbon Dioxide 24 mmol/L (23-31); Chloride 107 mmol/L (98-107); Estimated GFR-MDRD 59; Glucose 168 mg/dL (83-110); Magnesium 1.9 mg/dL (1.6-2.6); Phosphorus 2.9 mg/dL (2.3-4.7); Potassium 4.5 mmol/L (3.5-5.1); Sodium 137 mmol/L (136-145)
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
[2019-03-20] MEDS: Montelukast Sodium 10 mg Tablet PO SCH (10:41)
[2019-03-20] MEDS: Amlodipine 10 MG TAB PO SCH (10:41)
[2019-03-20] MEDS: Lisinopril 20 MG TAB PO SCH (10:42)
[2019-03-20] MEDS ORDERED: traMADol HCl 50 MG TAB PO PRN (10:59)
[2019-03-20] MEDS ORDERED: Cyclobenzaprine 10 MG TAB PO SCH (11:15)
[2019-03-20] MEDS: Acetaminophen 500 MG TAB PO SCH ×2 (11:24→17:57)
[2019-03-20] MEDS: traMADol HCl 50 MG TAB PO SCH ×2 (11:24→17:57)
[2019-03-20 13:43] LABS: Actual Bicarbonate (HCO3a) 16.7 mEq/L (22-28); Base Excess (BEa) -10.6 mEq/L (-2.0 to +3.0); CO2 Tension 42.9 mmHg (35.0-45.0); Calcium, Ionized 1.17 mmol/L (1.12-1.30); Carboxyhemoglobin (COHb) 0.5 gm% (0.0-3.0); O2 Tension (PaO2) 78.4 mmHg (> 70.0); Potassium - ABG Lab 4.98 mmol/L (3.70-5.30)
[2019-03-20 13:44] LABS: ALV-art Gradient 224.475 (0-20); Puncture Site ALINE; pH, Arterial 7.21 (7.35-7.45)
[2019-03-20] MEDS ORDERED: Ibuprofen 800 MG TAB PO SCH (14:00)
[2019-03-20 14:40] LABS: Actual Bicarbonate (HCO3a) 18.2 mEq/L (22-28); Base Excess (BEa) -7.7 mEq/L (-2.0 to +3.0); CO2 Tension 38.6 mmHg (35.0-45.0); Calcium, Ionized 1.15 mmol/L (1.12-1.30); Carboxyhemoglobin (COHb) 0.8 gm% (0.0-3.0); Hemoglobin (Hb) 9.4 g/dL (14.0-18.0); O2 Tension (PaO2) 76.5 mmHg (> 70.0); Potassium - ABG Lab 4.75 mmol/L (3.70-5.30); Puncture Site ALINE; pH, Arterial 7.29 (7.35-7.45)
[2019-03-20] MEDS: Sodium Bicarbonate 100 MEQ in Dextrose 5% in Water 1,000 ML IV SCH (14:50)
[2019-03-20] MEDS ORDERED: Gabapentin 300 MG CAP PO SCH (15:00)
[2019-03-20] MEDS: Ibuprofen 800 MG TAB PO SCH ×2 (17:56→22:00)
[2019-03-20] MEDS: Gabapentin 100 MG CAP PO SCH ×2 (17:57→20:42)
[2019-03-21] MEDS: Acetaminophen 500 MG TAB PO SCH (00:31)
[2019-03-21] MEDS: traMADol HCl 50 MG TAB PO SCH ×4 (00:32→16:54)
[2019-03-21] MEDS: Sodium Bicarbonate 100 MEQ in Dextrose 5% in Water 1,000 ML IV SCH ×3 (00:52→23:29)
[2019-03-21] MEDS ORDERED: Morphine 4 MG/ML VIAL SLOW IVP SCH (06:00)
[2019-03-21] MEDS: Acetaminophen 1,000 MG in Premix Bag 1 BAG IVPB SCH ×4 (06:24→23:29)
[2019-03-21] MEDS: Ibuprofen 800 MG TAB PO SCH ×3 (06:25→21:10)
[2019-03-21] MEDS: Insulin Regular 300 UNITS/3 ML VIAL SC PRN ×4 (06:26→21:07)
[2019-03-21] MEDS: Mometasone/Formoterol 120 PUFF INHALER INH SCH ×2 (06:33→18:51)
[2019-03-21 06:45] LABS: #Lymphocytes 1.4 thou/uL (1.20-3.40); #Monocytes 1.5 thou/uL (0.11-0.59); #Neutrophils 11.4 thou/uL (1.40-6.50); %Basophils 0.1 % (0.0-1.0); %Eosinophils 0.3 % (0.0-10.0); %Lymphocytes 9.4 % (21.0-51.0); %Monocytes 10.6 % (0.0-10.0); %Neutrophils 79.5 % (42.0-75.0); Hemoglobin 7.6 g/dL (14.0-18.0); Mean Corpuscular HGB CONC 32.3 g/dL (32.0-36.0); Mean Corpuscular Hemoglobin 31.3 pg (27.0-31.0); Mean Platelet Volume 7.6 fL (7.4-10.4); Platelet Count 202 thou/uL (130-400); RBC Distribution Width 12.4 % (11.5-14.5); Red Blood Cell (RBC) Count 2.41 mill/uL (4.70-6.10); White Blood Cell (WBC) Count 14.4 thou/uL (4.8-10.8)
[2019-03-21 07:02] LABS: ALT (SGPT) 84 U/L (8-55); AST (SGOT) 178 U/L (5-34); Albumin 3.7 g/dL (3.4-4.8); Alkaline Phosphatase 28 U/L (40-150); Anion Gap 15 mmol/L (10-20); BUN (Urea Nitrogen) 43 mg/dL (8.4-25.7); Bilirubin, Total 0.9 mg/dL (0.2-1.2); Calc. Creatinine Clearance 37 mL/min (70-130); Calcium 8.3 mg/dL (7.8-10.44); Carbon Dioxide 20 mmol/L (23-31); Chloride 106 mmol/L (98-107); Estimated GFR-MDRD 41; Globulin 2.1 g/dL (2.4-3.5); Glucose 262 mg/dL (83-110); Phosphorus 3.3 mg/dL (2.3-4.7); Potassium 4.4 mmol/L (3.5-5.1); Protein, Total 5.8 g/dL (5.8-8.1); Sodium 137 mmol/L (136-145)
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
[2019-03-21] MEDS ORDERED: Albumin 5% 250 ML ONE ×2 (07:53→08:32)
[2019-03-21 08:23] LABS: Actual Bicarbonate (HCO3a) 20.3 mEq/L (22-28); Base Excess (BEa) -4.6 mEq/L (-2.0 to +3.0); CO2 Tension 36.2 mmHg (35.0-45.0); Calcium, Ionized 1.09 mmol/L (1.12-1.30); Carboxyhemoglobin (COHb) 1.4 gm% (0.0-3.0); Hemoglobin (Hb) 7.7 g/dL (14.0-18.0); Potassium - ABG Lab 4.16 mmol/L (3.70-5.30); Puncture Site ALINE; pH, Arterial 7.37 (7.35-7.45)
[2019-03-21] MEDS: Metoprolol Tartrate 25 MG TAB PO SCH ×2 (08:33→21:10)
[2019-03-21] MEDS: Gabapentin 100 MG CAP PO SCH ×3 (08:33→21:10)
[2019-03-21] MEDS: Montelukast Sodium 10 mg Tablet PO SCH (09:43)
[2019-03-21] MEDS ORDERED: DOPamine 400 MG/D5W 250 ML 250 ML ONE (12:13)
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
[2019-03-21 15:28] LABS: Actual Bicarbonate (HCO3a) 21.4 mEq/L (22-28); Analyzer IN Cardio OR; Base Excess (BEa) -7.6 mEq/L (-2.0 to +3.0); Calcium, Ionized 1.11 mmol/L (1.12-1.30); Carboxyhemoglobin (COHb) 0.7 gm% (0.0-3.0); Hemoglobin (Hb) 8.6 g/dL (14.0-18.0); O2 Tension (PaO2) 437.7 mmHg (> 70.0); Potassium - ABG Lab 5.46 mmol/L (3.70-5.30)
[2019-03-21 15:31] LABS: pH, Arterial 7.14 (7.35-7.45)
[2019-03-21 15:32] LABS: CO2 Tension 64.8 mmHg (35.0-45.0); Puncture Site ALINE
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
[2019-03-21] MEDS ORDERED: DOPamine 400 MG/D5W 250 ML 250 ML IVPB SCH (20:15)
[2019-03-21 20:34] LABS: Actual Bicarbonate (HCO3a) 21.8 mEq/L (22-28); Base Excess (BEa) -4.2 mEq/L (-2.0 to +3.0); CO2 Tension 43.9 mmHg (35.0-45.0); Calcium, Ionized 1.12 mmol/L (1.12-1.30); Carboxyhemoglobin (COHb) 0.6 gm% (0.0-3.0); Hemoglobin (Hb) 10.5 g/dL (14.0-18.0); O2 Tension (PaO2) 76.3 mmHg (> 70.0); Potassium - ABG Lab 4.21 mmol/L (3.70-5.30); pH, Arterial 7.31 (7.35-7.45)
[2019-03-21 20:37] LABS: Puncture Site ALINE
[2019-03-21 20:38] LABS: ALV-art Gradient 154.025 (0-20)
[2019-03-21] MEDS ORDERED: Vecuronium 10 MG VIAL ONE (21:14)
[2019-03-21] MEDS ORDERED: Rocuronium Bromide 10 MG/ML (10ML VIAL) ONE (21:15)
--- NOTE | 2019-03-21 21:48 | RAD ---
Frontal radiograph chest: 03/21/2019 at 9:27 PM COMPARISON: 03/21/2019 at 6:10 AM HISTORY: Endotracheal tube placement FINDINGS: There is an endotracheal tube in place, projecting over the tracheal air column in proper p osition. There is hazy increased density in both lung bases suggesting volume loss, airspace disease, and/or small volume pleural effusions. Heart and mediastinal contours are stable. Supine myles ging limits assessment for pneumothorax. IMPRESSION: Endotracheal tube in place. Increased density in both lung bases.
[2019-03-21 22:09] LABS: pH, Arterial 7.26 (7.35-7.45)
[2019-03-21 22:10] LABS: Base Excess (BEa) -5.8 mEq/L (-2.0 to +3.0); CO2 Tension 47.5 mmHg (35.0-45.0); Carboxyhemoglobin (COHb) 0.3 gm% (0.0-3.0); Hemoglobin (Hb) 10.1 g/dL (14.0-18.0); O2 Tension (PaO2) 90.8 mmHg (> 70.0)
[2019-03-21 22:11] LABS: ALV-art Gradient 206.325 (0-20); Calcium, Ionized 1.07 mmol/L (1.12-1.30); Potassium - ABG Lab 3.91 mmol/L (3.70-5.30); Puncture Site ALINE
[2019-03-21] MEDS ORDERED: Fentanyl 100 MCG/2 ML VIAL ONE (22:15)
[2019-03-21] MEDS ORDERED: fentaNYL Citrate/PF 2,000 MCG in Sodium Chloride 0.9% 60 ML IV SCH (22:17)
[2019-03-21] MEDS ORDERED: DISCONTINUE PREVIOUS NARCOTIC PAIN MEDICATIONS AND BENZODIAZEPINES FS SCH (22:17)
[2019-03-21] MEDS ORDERED: Lorazepam 2 MG/ML VIAL SLOW IVP PRN (22:17)
[2019-03-21] MEDS ORDERED: Propofol BOLUS 1,000 MG/100 ML VIAL IV PRN (22:17)
[2019-03-21] MEDS ORDERED: Propofol 1,000 MG/100 ML VIAL IV PRN (22:17)
[2019-03-21] MEDS ORDERED: Fentanyl BOLUS 250 ML IVPB PRN (22:17)
[2019-03-21] MEDS ORDERED: Morphine 2 MG/ML SYRINGE SLOW IVP PRN (22:17)
[2019-03-21] MEDS ORDERED: Ventilator Sedation Protocol 1 EACH FS SCH (22:32)
[2019-03-22] MEDS ORDERED: cefTRIAXone\\ROCEPHIN 1 GM in Sodium Chloride 0.9% 100 ML IVPB SCH (02:00)
[2019-03-22] MEDS ORDERED: Sodium Bicarb 50 MEQ/50 ML VIAL ONE ×3 (04:24→12:02)
[2019-03-22] MEDS ORDERED: Sodium Chloride 0.9% 15 ML NEB ONE (04:29)
[2019-03-22 04:34] VITALS: TEMP 98.2
[2019-03-22] MEDS ORDERED: Norepinephrine 8 MG/0.9% NS 250 ML ONE ×2 (04:39→11:41)
[2019-03-22] MEDS ORDERED: Norepinephrine 8 MG/250 ML BAG IVPB PRN (04:51)
[2019-03-22] MEDS ORDERED: Sodium Bicarb 50 MEQ/50 ML VIAL IVP SCH (05:00)
[2019-03-22 05:05] LABS: Anion Gap 18 mmol/L (10-20); BUN (Urea Nitrogen) 55 mg/dL (8.4-25.7); Calc. Creatinine Clearance 26 mL/min (70-130); Calcium 8.3 mg/dL (7.8-10.44); Carbon Dioxide 21 mmol/L (23-31); Chloride 101 mmol/L (98-107); Estimated GFR-MDRD 27; Glucose 272 mg/dL (83-110); Magnesium 2.3 mg/dL (1.6-2.6); Phosphorus 4.9 mg/dL (2.3-4.7); Potassium 5.1 mmol/L (3.5-5.1); Sodium 135 mmol/L (136-145)
--- NOTE | 2019-03-22 05:20 | PDOC.EVN ---
Event Note - Event Note Event Note: Called by the nurse reporting a drop in bp, urine output and guppy like breathing over the vent. Worsening ABG. Pt just received a Duo Neb by RT. Decreased mentation from earlier. Bilateral BS diminished. Stat CXR obtained. Am labs pending. Was started on Empiric ABX earlier for post sputum culture. Requested suctioning, thick yellow green mucous obtained. Repeat Duo Neb given. NS Bolus given Stared Levo. Dr Rosado notified. Vent changes made by RT. BP improving with Levo, Dr. Rosado coming in for central line placement and bronchoscopy
[2019-03-22 05:28] VITALS: BMI 26.6
[2019-03-22 05:36] LABS: Band 8 % (5-11); Hemoglobin 10.2 g/dL (14.0-18.0); Hypochromia SLIGHT = 6-15 cells (100X) (0-5/hpf); Lymphocytes 11 % (21-51); MDiff Complete? YES; Mean Corpuscular HGB CONC 32.6 g/dL (32.0-36.0); Mean Corpuscular Hemoglobin 31.1 pg (27.0-31.0); Mean Corpuscular Volume 95.4 fL (78.0-98.0); Mean Platelet Volume 8.3 fL (7.4-10.4); Monocytes 4 % (0-10); Neutrophil 77 % (42-75); Nucleated RBC 3 % (0); Platelet Count 154 thou/uL (130-400); Platelet Morphology Comment Appears Adequate; RBC Distribution Width 13.8 % (11.5-14.5); White Blood Cell (WBC) Count 17.8 thou/uL (4.8-10.8)
[2019-03-22 05:37] LABS: Troponin I 3.838 ng/mL (< 0.028)
[2019-03-22] MEDS ORDERED: Sterile Water 10 ML ONE (05:40)
[2019-03-22] MEDS ORDERED: Vecuronium 10 MG VIAL ONE (05:40)
[2019-03-22] MEDS ORDERED: Albumin 5% 0 ML ONE (05:44)
[2019-03-22] MEDS ORDERED: Piperacillin/Tazobactam 3.375 GM in Sodium Chloride 0.9% 100 ML IVPB SCH (06:00)
[2019-03-22 06:09] LABS: CO2 Tension 44.7 mmHg (35.0-45.0); pH, Arterial 7.25 (7.35-7.45)
[2019-03-22 06:10] LABS: Actual Bicarbonate (HCO3a) 19.1 mEq/L (22-28); Base Excess (BEa) -7.8 mEq/L (-2.0 to +3.0); Carboxyhemoglobin (COHb) 0.7 gm% (0.0-3.0); Hemoglobin (Hb) 10.8 g/dL (14.0-18.0); O2 Tension (PaO2) 78.3 mmHg (> 70.0); Potassium - ABG Lab 4.58 mmol/L (3.70-5.30)
[2019-03-22 06:11] LABS: Calcium, Ionized 1.12 mmol/L (1.12-1.30); Puncture Site ALINE
[2019-03-22 06:12] LABS: ALV-art Gradient 293.625 (0-20)
[2019-03-22] MEDS: Acetaminophen 1,000 MG in Premix Bag 1 BAG IVPB SCH (06:16)
[2019-03-22] MEDS: Insulin Regular 300 UNITS/3 ML VIAL SC PRN ×2 (06:18→10:33)
[2019-03-22] MEDS: Ibuprofen 800 MG TAB PO SCH (06:24)
[2019-03-22 06:27] LABS: CKMB 9.6 ng/mL (0-6.6)
[2019-03-22] MEDS ORDERED: Heparin 10,000 UNITS/ 10 ML VIAL SLOW IVP SCH (06:45)
[2019-03-22] MEDS ORDERED: Heparin 25,000 units/D5W 500 ML IVPB SCH (06:45)
[2019-03-22 07:01] LABS: Actual Bicarbonate (HCO3a) 22.6 mEq/L (22-28); Base Excess (BEa) -4.3 mEq/L (-2.0 to +3.0); CO2 Tension 49.9 mmHg (35.0-45.0); Calcium, Ionized 1.08 mmol/L (1.12-1.30); Carboxyhemoglobin (COHb) 0.3 gm% (0.0-3.0); Hemoglobin (Hb) 10.8 g/dL (14.0-18.0); Potassium - ABG Lab 3.94 mmol/L (3.70-5.30); pH, Arterial 7.27 (7.35-7.45)
[2019-03-22 07:05] LABS: Puncture Site line
[2019-03-22 07:06] LABS: ALV-art Gradient 418.625 (0-20)
[2019-03-22] MEDS ORDERED: Ventilator Sedation Protocol 1 EACH FS SCH (07:15)
[2019-03-22] MEDS: Mometasone/Formoterol 120 PUFF INHALER INH SCH (07:20)
[2019-03-22 07:54] LABS: Hemoglobin 10.2 g/dL (14.0-18.0); Platelet Count 152 thou/uL (130-400)
--- NOTE | 2019-03-22 07:58 | RAD ---
SINGLE VIEW OF THE CHEST: COMPARISON: 03/22/2019. HISTORY: Central line placement. FINDINGS: A single view of the chest shows a normal-size cardiomediastinal silhouette. The endotracheal tube a nd NG tube are unchanged in position. There is a left subclavian central venous catheter with its ti p in the superior vena cava. No pneumothorax is seen. There appear to be small bilateral pleural ef fusions. IMPRESSION: Status post central line placement without evidence of complication. POS: GRICEL
[2019-03-22] MEDS ORDERED: Ferrous Sulfate 325 MG TAB PO SCH (08:00)
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
[2019-03-22] MEDS ORDERED: Calcium Chloride 1 GM/10 ML Abboject SYRINGE IVP SCH (08:30)
[2019-03-22] MEDS: Montelukast Sodium 10 mg Tablet PO SCH (08:45)
[2019-03-22] MEDS: Gabapentin 100 MG CAP PO SCH (08:45)
[2019-03-22] MEDS: Metoprolol Tartrate 25 MG TAB PO SCH (08:45)
[2019-03-22] MEDS ORDERED: Famotidine/PF 20 mg/2ml Vial SLOW IVP SCH (09:00)
[2019-03-22] MEDS ORDERED: Ascorbic Acid 500 mg Chewable Tablet PO SCH (09:00)
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
[2019-03-22] MEDS: methylPREDNISolone Sod Succ/PF 125 MG/2 ML VIAL IVP SCH (09:08)
[2019-03-22 10:28] LABS: Lactic Acid 2.4 mmol/L (0.5-2.2)
[2019-03-22 10:40] VITALS: BP 95/64
[2019-03-22 11:14] LABS: CKMB 9.5 ng/mL (0-6.6); Critical Call CKMB RESULT DECREASING
[2019-03-22] MEDS ORDERED: Albumin 5% 500 ML ONE (11:23)
[2019-03-22] MEDS ORDERED: DOPamine 400 MG/D5W 250 ML 250 ML ONE (11:41)
[2019-03-22] MEDS ORDERED: EPINEPHrine 1 MG/10 ML Abboject SYRINGE ONE (11:42)
[2019-03-22] MEDS ORDERED: Piperacillin/Tazobactam 2.25 GM in Sodium Chloride 0.9% 100 ML IVPB SCH (12:00)
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
--- NOTE | 2019-03-22 23:13 | EKG ---
Test Reason : STAT Blood Pressure : / mmHG Vent. Rate : 115 BPM Atrial Rate : 115 BPM P-R Int : 126 ms QRS Dur : 066 ms QT Int : 322 ms P-R-T Axes : 079 065 034 degrees QTc Int : 445 ms Sinus tachycardia Low voltage QRS Septal infarct , age undetermined Abnormal ECG When compared with ECG of 17-MAR-2019 10:21, (Unconfirmed) QRS duration has decreased QRS voltage has decreased ST now depressed in Anterolateral leads Nonspecific T wave abnormality now evident in Anterior leads Nonspecific T wave abnormality no longer evident in Lateral leads Confirmed by RAJINDER MARTINEZ ([id number] on 03/22/2019 11:13:17 PM Referred By: ITZ Confirmed By:RAJINDER MARTINEZ
[2019-03-23] MEDS ORDERED: EPINEPHrine 1 MG/10 ML Abboject SYRINGE ONE (13:57)
[2019-03-23] MEDS ORDERED: EPINEPHrine 1 mg/ml MDV (1ml Charge) ONE (13:57)
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
== END 2019-03-22 12:07 | disposition expired | DRG 480 ==
LOC: ERS 09:47 → SURG A 12:46 → CCU 03-19 10:56
PROVIDERS: ADMIT Surgery; ATTEND Surgery
PROC: 0QS606Z Reposition Right Upper Femur with Intramedullary Internal Fixation Device, Open Approach (ICD-10-PCS; principal; 2019-03-19)
PROC: 0QSG04Z Reposition Right Tibia with Internal Fixation Device, Open Approach (ICD-10-PCS; 2019-03-19)
PROC: 0BH17EZ Insertion of Endotracheal Airway into Trachea, Via Natural or Artificial Opening (ICD-10-PCS; 2019-03-21)
PROC: 5A1945Z Respiratory Ventilation, 24-96 Consecutive Hours (ICD-10-PCS; 2019-03-21)
PROC: 02HV33Z Insertion of Infusion Device into Superior Vena Cava, Percutaneous Approach (ICD-10-PCS; 2019-03-22)
PROC: 3E033XZ Introduction of Vasopressor into Peripheral Vein, Percutaneous Approach (ICD-10-PCS; 2019-03-22)
PROC: 5A12012 Performance of Cardiac Output, Single, Manual (ICD-10-PCS; 2019-03-22)
PROC: 0BJ08ZZ Inspection of Tracheobronchial Tree, Via Natural or Artificial Opening Endoscopic (ICD-10-PCS; 2019-03-22)
PROC: 30233N1 Transfusion of Nonautologous Red Blood Cells into Peripheral Vein, Percutaneous Approach (ICD-10-PCS; 2019-03-22)
DX: S72.141A Displaced intertrochanteric fracture of right femur, initial encounter for closed fracture (principal); J96.01 Acute respiratory failure with hypoxia; J96.02 Acute respiratory failure with hypercapnia; S22.43XA Multiple fractures of ribs, bilateral, initial encounter for closed fracture; S82.141A Displaced bicondylar fracture of right tibia, initial encounter for closed fracture; J44.1 Chronic obstructive pulmonary disease with (acute) exacerbation; D62 Acute posthemorrhagic anemia; E87.2 Acidosis; N17.9 Acute kidney failure, unspecified; V89.2XXA Person injured in unspecified motor-vehicle accident, traffic, initial encounter; I10 Essential (primary) hypertension; E11.9 Type 2 diabetes mellitus without complications; Z86.73 Personal history of transient ischemic attack (TIA), and cerebral infarction without residual deficits; Z79.01 Long term (current) use of anticoagulants; Z79.84 Long term (current) use of oral hypoglycemic drugs; S01.81XA Laceration without foreign body of other part of head, initial encounter; V49.40XA Driver injured in collision with unspecified motor vehicles in traffic accident, initial encounter; Y92.410 Unspecified street and highway as the place of occurrence of the external cause; Z87.891 Personal history of nicotine dependence; S60.511A Abrasion of right hand, initial encounter; Z23 Encounter for immunization; I25.10 Atherosclerotic heart disease of native coronary artery without angina pectoris; I95.9 Hypotension, unspecified; I46.8 Cardiac arrest due to other underlying condition; E83.51 Hypocalcemia
CPT/HCPCS: 12002; 36415; 36416; 36430; 70450; 71045; 71260; 72125; 72170; 74177; 76000; 80048; 80053; 80306; 80307; 82533; 82550; 82553; 82805; 83605; 83735; 83880; 84100; 84484; 85025; 85610; 85730; 86850; 86900; 86901; 87040; 87070; 87077; 87086; 87205; 90471; 90715; 92950; 93005; 93010; 93306; 94002; 94003; 94640; 94660; 96374; 96375; A4216; A4218; C1713; C1769; G0390; J0131; J0171; J0690; J0696; J1265; J1644; J1815; J1885; J2001; J2270; J2405; J2543; J2704; J2765; J2930; J3010; J3490; J7050; J7070; J7620; P9016; P9045; Q9966; S0028